=== PATIENT | female | born 1995 | race Caucasian/White ===

== ENCOUNTER 2018-06-22 17:36 | Day surgery (SDC) | payer OTHER ==
[2018-06-22 18:19] VITALS: BP 118/65; TEMP 98; BMI 26.6
[2018-06-22 18:48] LABS: Amnisure Internal Control QC ACCEPTABLE (ACCEPTABLE); Amnisure Test No Membranes Rupture (No Rupture)
--- NOTE | 2018-06-23 02:34 | SS ---
LABOR AND DELIVERY TRIAGE NOTE DATE OF EVALUATION: 06/22/2018 REGULAR PROVIDER: Juhi Whelan, certified nurse ash collector. EVALUATING PHYSICIAN: Adonis Sheehan M.D. CHIEF COMPLAINT: Possible leakage of fluid since last night. HISTORY OF PRESENT ILLNESS: Ms. Fernando is a 23-year-old white G1, P0 with an estimated date of conf inement of 08/07/2018 who presents thinking she might have been leaking since midnight last night. S he states that she had sex at 10:00 p.m. She did notice a specific gush of fluid and denies vaginal bleeding. She did not wear a pad to the hospital. PAST MEDICAL HISTORY 1. Patent foramen ovale. 2. History of reported stroke. MEDICATIONS: vitamins and Plavix. PAST SURGICAL HISTORY: None. ALLERGIES: GLUTEN. SOCIAL HISTORY: Denies tobacco, alcohol, or drug use. FAMILY HISTORY: Unremarkable. REVIEW OF SYSTEMS: Denies nausea, vomiting, fever, chills or vaginal bleeding. PHYSICAL EXAMINATION: VITAL SIGNS: Stable. She is afebrile. ABDOMEN: Soft, nontender and gravid. PELVIC: Cervix is closed. There is no fluid on the exam glove. heart tones are stable. No d ecelerations are seen. No uterine contractions are seen. AmniSure returns negative. ASSESSMENT: 1. A 33 and 3/7-week intrauterine . 2. No evidence of ruptured membranes at this time. PLAN: The patient will be discharged home with precautions. She states that she has an appointment with Juhi Whelan in 2 weeks.
== END 2018-06-22 19:47 | disposition home or self-care (01) ==
LOC: L&D/OP 17:36
PROVIDERS: ATTEND Advanced Practice Midwife
DX: Z03.79 Encounter for other suspected maternal and fetal conditions ruled out (principal); Z86.73 Personal history of transient ischemic attack (TIA), and cerebral infarction without residual deficits; Z88.8 Allergy status to other drugs, medicaments and biological substances
CPT/HCPCS: 84112; 99283

== ENCOUNTER 2018-07-31 05:30 | Inpatient (IN) | payer OTHER ==
[2018-07-31 07:14] VITALS: BMI 27.3
[2018-07-31] MEDS ORDERED: Ondansetron PF 4 MG/2 ML Vial IVP PRN (08:22)
[2018-07-31] MEDS ORDERED: Methylergonovine 0.2 MG/ML VIAL IM PRN (08:22)
[2018-07-31] MEDS ORDERED: HYDROcodone/Acetaminophen 5/325 mg Tablet PO PRN ×2 (08:22)
[2018-07-31] MEDS ORDERED: Butorphanol Tartrate 1 MG/ML VIAL SLOW IVP PRN (08:22)
[2018-07-31] MEDS ORDERED: Promethazine HCl 25 MG/ML VIAL IM PRN (08:22)
[2018-07-31] MEDS ORDERED: Lidocaine 1% (PF) 30 ML VIAL SC PRN (08:22)
[2018-07-31] MEDS ORDERED: Ibuprofen 800 MG TAB PO PRN (08:22)
[2018-07-31] MEDS ORDERED: Misoprostol 200 MCG TAB PR PRN (08:22)
[2018-07-31] MEDS ORDERED: NS w/ Oxytocin 10 units 500 ML IV SCH (08:30)
--- NOTE | 2018-07-31 08:35 | PDOC.LDHP ---
Labor and Delivery H&P Chief complaint: other (Induction of labor) HPI: presents for IOL Due date: 08/07/18 Dating criteria: first trimester ultrasound (for S<D) Grav: 1 Para: 0 Abnormal US findings: No Past Medical History: PFO TIAs x 3s heterozygous MTHFR Celiac disease paralyzed vocal cords Current medications: pre- vitamins (paralyzed) Allergies/Adverse Reactions: Allergies Allergy/AdvReac Type Severity Reaction Status Date / Time No Known Allergies Allergy Verified 07/31/18 07:14 Social history: none - Physical Exam Vital signs reviewed and normal: yes General: NAD Heart: RRR Lungs: CTAB Abdomen: gravid FHT: category 1 - Vaginal Exam cm dilated: 2 Effacement: 50% Station: -1 - OB Labs Blood type: A RH: positive HIV: negative RPR: negative HEPSAg: negative 1 hour GCT: negative GBS: negative Urine drug screen: not done Rubella: immune - Assessment L&D Assessment: medically indicated induction - Plan Plan: admit to L&D, cervical ripening (with PO cytotec.), labor augmentation if indicated, anesthesia consult for pain management
[2018-07-31 09:25] LABS: Hemoglobin 11.7 g/dL (12.0-16.0); Mean Corpuscular HGB CONC 33.3 g/dL (32.0-36.0); Mean Corpuscular Volume 92.9 fL (78.0-98.0); Mean Platelet Volume 8.9 fL (7.4-10.4); Platelet Count 174 thou/uL (130-400); RBC Distribution Width 12.3 % (11.5-14.5); Red Blood Cell (RBC) Count 3.79 mill/uL (4.20-5.40); White Blood Cell (WBC) Count 10.4 thou/uL (4.8-10.8)
[2018-07-31] MEDS: Misoprostol 100 MCG TAB PO SCH ×3 (09:25→15:44)
[2018-07-31 10:00] LABS: HBSAg Index 0.22 S/CO (0-0.99); Hep B Surf Ag Non-Reactive S/CO (NonReactive)
[2018-07-31 10:01] LABS: Syphilis Antibody Nonreactive (Nonreactive); Syphilis Antibody Index 0.06 S/CO (<1.00 Non-Reactive)
[2018-07-31] MEDS: Lactated Ringer's 1,000 ML IV SCH ×2 (16:48)
[2018-08-01] MEDS: Lactated Ringer's 1,000 ML IV SCH (00:38)
[2018-08-01] MEDS ORDERED: NS / Oxytocin 40 units/1000ml 1,000 ML ONE (03:37)
[2018-08-01] MEDS ORDERED: Lidocaine 1% (PF) 30 ML VIAL ONE (03:37)
[2018-08-01] MEDS: NS / Oxytocin 40 units/1000ml 1,000 ML IV PRN ×2 (04:30→06:42)
--- NOTE | 2018-08-01 04:47 | PDOC.OPDEL ---
OB Operative/Delivery Note Delivery Dr/Surgeon: Hadley Whelan CNM Pre-Delivery Diagnosis: medically indicated induction (for hx of TIA x 3) Procedure/Post Delivery Dx: spontaneous vaginal delivery Weeks gestation: 39 Anesthesia: none - Findings A Sex: male - 1 min: 2 - 5 min: 7 (8 at 10 mins) - Additional Findings/Plan Placenta delivered: spontaneous Repaired Obstetrical Laceration: none Estimated blood loss: 100mL see nurses notes for QBL Compilations/Other Findings: Bradycardic to the 70s prior to delivery x 2mins ten resolved for one min, then bradycardic again for 2 mins to 60bpms immediately prior to expulsion.. lacked tone, the cord was immediately clamped and cut and the infant was taken to the warmer, [facility] team called and arrive at 1 min of life. Post delivery plan: routine recovery
[2018-08-01 05:02] LABS: Actual Bicarbonate (HCO3a) 20.1 mEq/L (22-28)
[2018-08-01] MEDS ORDERED: Methylergonovine 0.2 MG/ML VIAL IM PRN (07:17)
[2018-08-01] MEDS ORDERED: Ibuprofen 800 MG TAB PO SCH (07:17)
[2018-08-01] MEDS ORDERED: Benzocaine/Menthol 20-0.5% 60 ML CAN TOP PRN (07:17)
[2018-08-01] MEDS ORDERED: Milk Of Magnesia 30 ML UDCUP PO PRN (07:17)
[2018-08-01] MEDS ORDERED: NS / Oxytocin 40 units/1000ml 1,000 ML IV SCH (07:17)
[2018-08-01] MEDS ORDERED: Ondansetron PF 4 MG/2 ML Vial IVP PRN (07:17)
[2018-08-01] MEDS ORDERED: Bisacodyl 10 MG SUPP PR PRN (07:17)
[2018-08-01] MEDS ORDERED: Varicella virus, LIVE 0.5 ML VIAL SC ONE (07:17)
[2018-08-01] MEDS ORDERED: Measles/Mumps/Rubella 10 MCG/0.5 ML VIAL SC ONE (07:17)
[2018-08-01] MEDS ORDERED: Adacel (T-DAP) 0.5 ML VIAL IM ONE (07:17)
[2018-08-01] MEDS ORDERED: HYDROcodone/Acetaminophen 5/325 mg Tablet PO PRN ×2 (07:17)
[2018-08-01] MEDS ORDERED: Lanolin Ointment 7 GM TUBE TOP PRN (07:17)
[2018-08-01] MEDS: Ferrous Sulfate 325 MG TAB PO SCH ×2 (10:39→17:05)
[2018-08-01] MEDS: Misoprostol 100 MCG TAB PO SCH ×2 (10:40→10:41)
[2018-08-01] MEDS: Clopidogrel Bisulfate 75 MG TAB PO SCH (10:52)
[2018-08-01] MEDS: Docusate Calcium (SURFAK) 240 MG CAP PO SCH ×2 (10:52→21:24)
[2018-08-01] MEDS: Prenatal Vitamin 1 TAB PO SCH (10:53)
[2018-08-01] MEDS: Ibuprofen 800 MG TAB PO SCH ×2 (14:25→21:40)
[2018-08-02 05:42] LABS: Hemoglobin 10.6 g/dL (12.0-16.0); Mean Corpuscular HGB CONC 32.8 g/dL (32.0-36.0); Mean Corpuscular Hemoglobin 30.9 pg (27.0-31.0); Mean Corpuscular Volume 94.4 fL (78.0-98.0); Mean Platelet Volume 8.4 fL (7.4-10.4); Platelet Count 157 thou/uL (130-400); RBC Distribution Width 12.5 % (11.5-14.5); Red Blood Cell (RBC) Count 3.42 mill/uL (4.20-5.40); White Blood Cell (WBC) Count 12.5 thou/uL (4.8-10.8)
[2018-08-02] MEDS: Ibuprofen 800 MG TAB PO SCH ×3 (06:50→21:43)
[2018-08-02] MEDS: Ferrous Sulfate 325 MG TAB PO SCH (08:07)
[2018-08-02] MEDS: Docusate Calcium (SURFAK) 240 MG CAP PO SCH ×2 (09:24→19:47)
[2018-08-02] MEDS: Prenatal Vitamin 1 TAB PO SCH (09:24)
[2018-08-02] MEDS: Acetaminophen 500 MG TAB PO PRN ×2 (09:24→19:47)
[2018-08-02] MEDS: Clopidogrel Bisulfate 75 MG TAB PO SCH (09:24)
[2018-08-02 21:28] VITALS: TEMP 97.5
[2018-08-03] MEDS: Ferrous Sulfate 325 MG TAB PO SCH ×2 (00:23→07:58)
[2018-08-03] MEDS: Ibuprofen 800 MG TAB PO SCH (00:23)
--- NOTE | 2018-08-03 08:14 | PDOC.PP ---
Post Progress Note Post Day #: 1 Subjective: doing well, . up to urinate, and passing gas. PO intake tolerated: yes Flatus: yes Ambulation: yes Weight Weight 159 lb - Physical Examination General: NAD Cardiovascular: no m/r/g, RRR Respiratory: non-labored breathing Abdominal: + bowel sounds, lochia (moderate) Fundus firm & at: -1 Extremities: negative homans (B) Neurological: no gross focal deficits Psychiatric: A&Ox3 Result Diagrams: 08/02/18 05:22 Additional Labs: Post Labs Blood Type A POSITIVE 07/31/18 09:11 Hep Bs Antigen Non-Reactive S/CO (NonReactive) 07/31/18 09:11 (1) (spontaneous vaginal delivery) Code(s): O80 - ENCOUNTER FOR FULL-TERM UNCOMPLICATED DELIVERY Status: Acute (2) History of TIA (transient ischemic attack) Code(s): Z86.73 - PRSNL HX OF TIA (TIA), AND CEREB INFRC W/O RESID DEFICITS Status: Acute (3) Anticoagulation therapy continued upon discharge Code(s): SOT8321 - Status: Acute - Assessment/Plan G1 now p1 s/p . NML PPD#1 exam P: routine care
[2018-08-03 08:15] VITALS: BP 100/55
[2018-08-03] MEDS: Prenatal Vitamin 1 TAB PO SCH (09:26)
[2018-08-03] MEDS: Docusate Calcium (SURFAK) 240 MG CAP PO SCH (09:26)
[2018-08-03] MEDS: Clopidogrel Bisulfate 75 MG TAB PO SCH (09:26)
== END 2018-08-03 14:19 | disposition home or self-care (01) | DRG 807 ==
LOC: L&D 06:17 → 3SW 08-01 09:47
PROVIDERS: ADMIT Obstetrics & Gynecology; ATTEND Obstetrics & Gynecology
PROC: 10907ZC Drainage of Amniotic Fluid, Therapeutic from Products of Conception, Via Natural or Artificial Opening (ICD-10-PCS; principal; 2018-07-31)
PROC: 10E0XZZ Delivery of Products of Conception, External Approach (ICD-10-PCS; 2018-07-31)
PROC: 3E0234Z Introduction of Serum, Toxoid and Vaccine into Muscle, Percutaneous Approach (ICD-10-PCS; 2018-07-31)
DX: O76 Abnormality in fetal heart rate and rhythm complicating labor and delivery (principal); Z37.0 Single live birth; Z3A.39 39 weeks gestation of pregnancy; O69.81X0 Labor and delivery complicated by cord around neck, without compression, not applicable or unspecified; O99.89 Other specified diseases and conditions complicating pregnancy, childbirth and the puerperium; R00.1 Bradycardia, unspecified; Z23 Encounter for immunization
CPT/HCPCS: 36415; 82805; 85027; 86780; 86850; 86900; 86901; 87340; 88307; J0595; J2001

== ENCOUNTER 2019-12-06 22:56 | Inpatient (IN) | payer OTHER ==
[2019-12-07] MEDS ORDERED: Promethazine HCl 25 MG/ML VIAL IM PRN (01:10)
[2019-12-07] MEDS ORDERED: Lactated Ringer's 1,000 ML IV SCH (01:10)
[2019-12-07] MEDS ORDERED: Butorphanol Tartrate 1 MG/ML VIAL SLOW IVP PRN (01:10)
[2019-12-07] MEDS ORDERED: hydrALAZINE 20 MG/ML VIAL SLOW IVP PRN ×2 (01:10→08:24)
[2019-12-07] MEDS ORDERED: Ondansetron PF 4 MG/2 ML Vial IVP PRN (01:10)
[2019-12-07] MEDS ORDERED: NS / Oxytocin 40 units/1000ml 1,000 ML IV SCH ×2 (01:15→08:24)
[2019-12-07] MEDS ORDERED: Lidocaine 1% (PF) 30 ML VIAL SC PRN (01:15)
[2019-12-07] MEDS ORDERED: NS w/ Oxytocin 10 units 500 ML IV SCH ×2 (01:15)
[2019-12-07 01:24] LABS: Hemoglobin 12.4 g/dL (12.0-16.0); Mean Corpuscular HGB CONC 33.4 g/dL (32.0-36.0); Mean Corpuscular Hemoglobin 28.1 pg (27.0-31.0); Mean Platelet Volume 8.3 fL (7.4-10.4); Platelet Count 168 thou/uL (130-400); RBC Distribution Width 13.2 % (11.5-14.5); Red Blood Cell (RBC) Count 4.41 mill/uL (4.20-5.40); White Blood Cell (WBC) Count 16.6 thou/uL (4.8-10.8)
[2019-12-07] MEDS ORDERED: Penicillin G Potassium 5 MILL.UNITS in Sodium Chloride 0.9% 100 ML IVPB SCH (01:30)
[2019-12-07 02:06] LABS: HBSAg Index 0.25 S/CO (0-0.99); Hep B Surf Ag Non-Reactive S/CO (NonReactive)
--- NOTE | 2019-12-07 04:00 | PDOC.LDHP ---
Labor and Delivery H&P Chief complaint: contractions Current gestational age (weeks): 40 Due date: 12/07/19 Dating criteria: last menstrual period Grav: 2 Para: 1 Current complications: none Abnormal US findings: No Past Medical History: TIA fro patent PFO which was repaired after her delivery of first child Current medications: pre-david vitamins Previous surgical history: other (FPO reparied in 2018) Allergies/Adverse Reactions: Allergies Allergy/AdvReac Type Severity Reaction Status Date / Time No Known Allergies Allergy Verified 07/31/18 07:14 Social history: none - Physical Exam Vital signs reviewed and normal: yes General: breathing through contractions Lungs: nonlabored breathing Abdomen: gravid FHT: category 1 - Vaginal Exam cm dilated: 6 Effacement: 50% Station: -1 - OB Labs Blood type: A RH: positive Antibody Screen: negative HIV: negative RPR: negative HEPSAg: negative 1 hour GCT: negative GBS: positive (by urine) Urine drug screen: negative Rubella: immune - Assessment L&D Assessment: term patient in labor - Plan Plan: GBS antibiotic prophylaxis
--- NOTE | 2019-12-07 04:04 | PDOC.OPDEL ---
OB Operative/Delivery Note Delivery Dr/Surgeon: Hadley Whelan Pre-Delivery Diagnosis: active labor Procedure/Post Delivery Dx: spontaneous vaginal delivery Weeks gestation: 40 Anesthesia: none - Findings A Sex: female Weight: 6 lb 13 oz - 1 min: 8 - 5 min: 9 - Additional Findings/Plan Placenta delivered: spontaneous Repaired Obstetrical Laceration: none Estimated blood loss: 350mL Post delivery plan: routine recovery
[2019-12-07] MEDS: Methylergonovine 0.2 MG/ML VIAL ONE ×2 (04:29→04:30)
[2019-12-07 04:44] LABS: Syphilis Antibody Nonreactive (Nonreactive); Syphilis Antibody Index 0.06 S/CO (<1.00 Non-Reactive)
[2019-12-07] MEDS ORDERED: Penicillin G 2.5 MILL.units 50 ML IVPB SCH (05:30)
[2019-12-07 07:23] VITALS: BMI 25.7
[2019-12-07] MEDS ORDERED: Adacel (T-DAP) 0.5 ML SYRINGE IM ONE (08:24)
[2019-12-07] MEDS ORDERED: HYDROcodone/Acetaminophen 5/325 mg Tablet PO PRN ×2 (08:24)
[2019-12-07] MEDS ORDERED: Milk Of Magnesia 30 ML UDCUP PO PRN (08:24)
[2019-12-07] MEDS ORDERED: Methylergonovine 0.2 MG/ML VIAL IM PRN (08:24)
[2019-12-07] MEDS ORDERED: Benzocaine-Menthol 82.5 ML CAN TOP PRN (08:24)
[2019-12-07] MEDS ORDERED: Ibuprofen 800 MG TAB PO SCH (08:24)
[2019-12-07] MEDS ORDERED: Misoprostol 200 MCG TAB VAG PRN (08:24)
[2019-12-07] MEDS ORDERED: Bisacodyl 10 MG SUPP PR PRN (08:24)
[2019-12-07] MEDS ORDERED: Ferrous Sulfate 325 MG TAB PO SCH (08:45)
[2019-12-07] MEDS ORDERED: Calcium Carbonate 500 MG ChewTAB PO SCH (09:00)
[2019-12-07] MEDS: Prenatal Vitamin 1 TAB PO SCH (09:40)
[2019-12-07] MEDS: Docusate Calcium (SURFAK) 240 MG CAP PO SCH ×3 (09:40→21:00)
[2019-12-07] MEDS: Ibuprofen 800 MG TAB PO SCH ×2 (13:21→21:00)
[2019-12-07] MEDS ORDERED: Sodium Chloride 0.9% 10 ML ONE (13:51)
[2019-12-07] MEDS: Ferrous Sulfate 325 MG TAB PO SCH (16:03)
[2019-12-08] MEDS: Ibuprofen 800 MG TAB PO SCH ×2 (06:27→14:15)
[2019-12-08] MEDS: Prenatal Vitamin 1 TAB PO SCH (09:04)
[2019-12-08] MEDS: Docusate Calcium (SURFAK) 240 MG CAP PO SCH (09:05)
[2019-12-08] MEDS: Ferrous Sulfate 325 MG TAB PO SCH (11:27)
[2019-12-08 14:28] VITALS: BP 100/55; TEMP 97.8
== END 2019-12-08 15:01 | disposition home or self-care (01) | DRG 807 ==
LOC: L&D/OP 22:56 → L&D 12-07 00:47 → 3SW 12-07 09:11
PROVIDERS: ADMIT Obstetrics & Gynecology; ATTEND Obstetrics & Gynecology
PROC: 10E0XZZ Delivery of Products of Conception, External Approach (ICD-10-PCS; principal; 2019-12-07)
DX: O99.824 Streptococcus B carrier state complicating childbirth (principal); Z37.0 Single live birth; Z3A.40 40 weeks gestation of pregnancy; Z87.74 Personal history of (corrected) congenital malformations of heart and circulatory system
CPT/HCPCS: 36415; 85027; 86780; 86850; 86900; 86901; 87340; 99285; J2210; J2540; J3490